=== PATIENT | female | born 1930 | race Caucasian/White ===

== ENCOUNTER 2020-04-25 18:59 | Inpatient (IN) | payer MEDICARE, BC ==
[2020-04-25] MEDS ORDERED: Ondansetron 4 MG Tab.DIS PO PRN (19:55)
[2020-04-25] MEDS ORDERED: Acetaminophen 325 MG Tab PO PRN (19:55)
[2020-04-25] MEDS ORDERED: Docusate Sodium 100 MG Cap PO PRN (19:55)
[2020-04-25] MEDS ORDERED: Sodium Chloride 0.9% 10 ML Syringe FLUSH PRN (19:55)
[2020-04-25] MEDS ORDERED: Temazepam 15 MG Cap PO PRN (19:55)
--- NOTE | 2020-04-25 20:05 | PCM.HP ---
H&P History of Present Illness - General Date of Service: 04/25/20 Admit Problem/Dx: Admission Diagnosis/Problem Admission Diagnosis/Problem Acute renal failure Source of Information: Family - History of Present Illness Initial Comments - Free Text/Narative: 89-year-old with a history of dementia lives with . The noted that in the past few days prior to admission the patient is a more sleepy, decreased oral intake. Less engaging in conversation. The patient denies chest pain, no shortness of breath No new medication change. The patient went to the clinic where she was noted to have acute renal failure, hypercalcemia and was referred to Hospital direct admission. - Related Data Allergies/Adverse Reactions: Allergies Allergy/AdvReac Type Severity Reaction Status Date / Time No Known Allergies Allergy Verified 04/25/20 19:43 Home Medications: Home Meds Acetaminophen [Acetaminophen Extra Strength] 500 mg PO Q8H PRN 04/25/20 [History ] Aspirin [Aspirin EC] 81 mg PO DAILY 04/25/20 [History] Calcium Carbonate/Vitamin D3 [Calcium 600 + Vit D Tablet] 1 each PO DAILY [History] Meclizine [Antivert] 12.5 mg PO TID PRN 04/25/20 [History] Multivitamin/Iron/Folic Acid [Centrum Adults Tablet] 1 each PO DAILY 04/25/20 [ History] Ramipril 12.5 mg PO DAILY 04/25/20 [History] hydroCHLOROthiazide [Hydrochlorothiazide] 12.5 mg PO DAILY 04/25/20 [History] Past Medical History HEENT History: Reports: Cataract, Hard of Hearing, Impaired Vision Cardiovascular History: Reports: High Cholesterol, Hypertension Gastrointestinal History: Reports: Hemorrhoids Genitourinary History: Reports: Acute Renal Failure, Urinary Incontinence [place] History: Reports: Musculoskeletal History: Reports: Arthritis Neurological History: Reports: Other (See Below) Other Neuro History: dementia - Infectious Disease History Infectious Disease History: Reports: Chicken Pox - Past Surgical History HEENT Surgical History: Reports: Cataract Surgery Cardiovascular Surgical History: Reports: None GI Surgical History: Reports: Appendectomy, Cholecystectomy, Colonoscopy Female Surgical History: Reports: None Neurological Surgical History: Reports: None Musculoskeletal Surgical History: Reports: Knee Replacement, Shoulder Surgery Social & Family History - Family History Family Medical History: Noncontributory - Tobacco Use Smoking Status *Q: Never Smoker Second Hand Smoke Exposure: No - Caffeine Use Caffeine Use: Reports: None - Recreational Drug Use Recreational Drug Use: No H&P Review of Systems - Review of Systems: Review Of Systems: See Below General: Denies: Fever, Chills Pulmonary: Denies: Shortness of Breath, Wheezing Cardiovascular: Reports: Edema. Denies: Chest Pain Gastrointestinal: Reports: Anorexia. Denies: Abdominal Pain, Diarrhea Psychiatric: Reports: Confusion Exam - Exam Exam: See Below - Vital Signs Vital Signs: Last Vital Signs Temp 97.5 F 04/25/20 19:15 Pulse 51 L 04/25/20 19:15 Resp 16 04/25/20 19:15 BP 156/94 H 04/25/20 19:15 Pulse Ox 96 04/25/20 19:15 Weight: 155 lb 4.8 oz - Exam Quality Assessment: No: Supplemental Oxygen General: Alert. No: Oriented Neck: Supple Lungs: Clear to Auscultation, Normal Respiratory Effort Cardiovascular: Regular Rate, Regular Rhythm GI/Abdominal Exam: Normal Bowel Sounds, Soft, Non-Tender Extremities: Pedal Edema (1+ bilateral) Neuro Extensive - Mental Status: Alert. No: Oriented x3 Neuro Extensive - Motor, Sensory, Reflexes: No: Abnormal Motor Psychiatric: Alert, Normal Affect, Normal Mood - Patient Data Lab Results Last 24 hrs: Monitor results were reviewed from the clinic Chest x-ray "normal heart size and pulmonary vascularity mild prominence of the right superior mediastinum likely due to vasculature". White blood cell count 11.7, hemoglobin 14.2, platelet count 335 B UN 14, sodium 143, creatinine 1.8, baseline creatinine 1.3-1.4, calcium 10.3, 6 months ago was 10.6, - Problem List (1) IVONNE (acute kidney injury) SNOMED Code(s): 97087175, 66294839 ICD Code: N17.9 - ACUTE KIDNEY FAILURE, UNSPECIFIED Status: Acute Current Visit: Yes (2) Hypercalcemia SNOMED Code(s): 76261275 ICD Code: E83.52 - HYPERCALCEMIA Status: Acute Current Visit: Yes (3) Dementia SNOMED Code(s): 14631359 ICD Code: F03.90 - UNSPECIFIED DEMENTIA WITHOUT BEHAVIORAL DISTURBANCE Status: Acute Current Visit: Yes Problem List Initiated/Reviewed/Updated: Yes Orders Last 24hrs: Active Orders 24 hr Category Date Time Status Patient Status [ADT] Routine ADT 04/25/20 19:55 Ordered Antiembolic Devices [RC] PER UNIT ROUTINE Care 04/25/20 19:59 Ordered Oxygen Therapy [RC] PRN Care 04/25/20 19:55 Ordered Peripheral IV Care [RC] . DIRECTED Care 04/25/20 19:59 Ordered Up With Assistance [RC] ASDIRECTED Care 04/25/20 19:55 Ordered VTE/DVT Education [RC] PER UNIT ROUTINE Care 04/25/20 19:55 Ordered Vital Signs [RC] Q4H Care 04/25/20 19:55 Ordered Regular Diet [DIET] Diet 04/25/20 Breakfast Ordered BASIC METABOLIC PANEL,BMP [CHEM] AM Lab 04/26/20 05:15 Ordered CBC WITH AUTO DIFF [HEME] AM Lab 04/26/20 05:15 Ordered Acetaminophen [Tylenol] Med 04/25/20 19:55 Ordered 650 mg PO Q4H PRN Aspirin [Halfprin] Med 04/26/20 09:00 Ordered 81 mg PO DAILY Docusate Sodium [Colace] Med 04/25/20 19:55 Ordered 100 mg PO BID PRN Heparin Sodium Med 04/25/20 22:00 Ordered 5,000 units SUBCUT Q8HR Multivitamin/Iron/Folic Acid [Centrum Adults Tablet] Med 04/26/20 09:00 Ordered 1 each PO DAILY Ondansetron [Zofran ODT] Med 04/25/20 19:55 Ordered 4 mg PO Q6H PRN Sodium Chloride 0.9% [Normal Saline] 1,000 ml Med 04/25/20 20:00 Ordered IV ASDIRECTED Sodium Chloride 0.9% [Saline Flush] Med 04/25/20 19:55 Ordered 10 ml FLUSH ASDIRECTED PRN Temazepam [Restoril] Med 04/25/20 19:55 Ordered 15 mg PO BEDTIME PRN Antiembolic Hose [OM.PC] Per Unit Routine Oth 04/25/20 19:58 Ordered Peripheral IV Insertion Adult [OM.PC] Routine Oth 04/25/20 19:55 Ordered Resuscitation Status Routine Resus Stat 04/25/20 19:55 Ordered Medication Orders Acetaminophen (Tylenol) 650 mg PO Q4H PRN PRN Reason: Pain (Mild 1-3)/fever Aspirin (Halfprin) 81 mg PO DAILY [facility] Docusate Sodium (Colace) 100 mg PO BID PRN PRN Reason: Constipation Heparin Sodium (Porcine) (Heparin Sodium) 5,000 units SUBCUT Q8HR [facility] Sodium Chloride (Normal Saline) 1,000 mls @ 50 mls/hr IV ASDIRECTED [facility] Non-Formulary Medication (Multivitamin/Iron/Folic Acid [Centrum Adults Tablet]) 1 each PO DAILY [facility] Ondansetron HCl (Zofran Odt) 4 mg PO Q6H PRN PRN Reason: nausea, able to take PO Sodium Chloride (Saline Flush) 10 ml FLUSH ASDIRECTED PRN PRN Reason: Keep Vein Open Temazepam (Restoril) 15 mg PO BEDTIME PRN PRN Reason: Sleep Assessment/Plan Comment:: Presented with increasing weakness Acute renal failure We will stop Ramipril Give gentle IV hydration Hypercalcemia Stop ramipril, improve renal function Stop calcium supplement Stop hydrochlorothiazide Generalized weakness Likely secondary to renal failure, baseline dementia, advanced age Will be high risk for hospital related delirium DVT prophylaxis with subcutaneous heparin CODE STATUS will be DNR per
[2020-04-25] MEDS: Sodium Chloride 0.9% 1,000 ML IV SCH (20:28)
[2020-04-25] MEDS: Heparin Sodium 5,000 Units/ML Vial SUBCUT SCH (22:17)
[2020-04-26] MEDS: Heparin Sodium 5,000 Units/ML Vial SUBCUT SCH ×4 (05:47→21:01)
[2020-04-26 07:55] LABS: ANION GAP 10.5 mEq/L (7-13)
[2020-04-26] MEDS: Multivitamins,Therapeutic Tab PO SCH (09:08)
[2020-04-26] MEDS: Aspirin 81 MG Tab.EC PO SCH (09:08)
--- NOTE | 2020-04-26 10:32 | PCM.PN ---
- General Info Date of Service: 04/26/20 Admission Dx/Problem (Free Text): Admission Diagnosis/Problem Admission Diagnosis/Problem Acute renal failure Subjective Update: remained stable, pleasantly confused no complaints no fever, no sob, no cp Functional Status: Reports: Pain Controlled, Tolerating Diet - Review of Systems General: Denies: Fever, Weakness Pulmonary: Denies: Shortness of Breath Cardiovascular: Denies: Chest Pain, Edema Neurological: Reports: Confusion Psychiatric: Denies: Agitation - Patient Data Vitals - Most Recent: Last Vital Signs Temp 97.8 F 04/26/20 07:00 Pulse 49 L 04/26/20 07:00 Resp 18 04/26/20 07:00 BP 138/58 L 04/26/20 07:00 Pulse Ox 98 04/26/20 07:00 Weight - Most Recent: 155 lb 4.8 oz I&O - Last 24 Hours: Intake & Output 04/25/20 04/26/20 04/26/20 22:59 06:59 14:59 Intake Total 200 120 Balance 200 120 Lab Results Last 24 Hours: Laboratory Results - last 24 hr 04/26/20 04/26/20 Range/Units 07:35 07:35 WBC 11.2 H (5.0-10.0) 10^3/uL RBC 4.57 (4.2-5.4) 10^6/uL Hgb 14.5 (12.0-16.0) g/dL Hct 43.5 (37.0-47.0) % MCV 95.2 (80-100) fL MCH 31.7 (27.0-34.0) pg MCHC 33.3 (33.0-35.0) g/dL Plt Count 279 (150-450) 10^3/uL Neut % (Auto) 68.5 (42.2-75.2) % Lymph % (Auto) 17.7 L (20.5-50.1) % [place] % (Auto) 9.9 H (2-8) % Eos % (Auto) 3.4 H (1.0-3.0) % Baso % (Auto) 0.5 (0.0-1.0) % Sodium 140 (136-145) mmol/L Potassium 3.5 (3.5-5.1) mmol/L Chloride 105 (98-107) mmol/L Carbon Dioxide 28 (21-32) mmol/L Anion Gap 10.5 (7-13) mEq/L BUN 33 H (7-18) mg/dL Creatinine 1.54 H (0.55-1.02) mg/dL Est Cr Clr Drug Dosing 21.39 mL/min Estimated GFR (MDRD) 32 Glucose 79 (74-99) mg/dL Calcium 9.5 (8.5-10.1) mg/dL Med Orders - Current: Current Medications Acetaminophen (Tylenol) 650 mg PO Q4H PRN PRN Reason: Pain (Mild 1-3)/fever Aspirin (Halfprin) 81 mg PO DAILY [facility] Last Admin: 04/26/20 09:08 Dose: 81 mg Docusate Sodium (Colace) 100 mg PO BID PRN PRN Reason: Constipation Heparin Sodium (Porcine) (Heparin Sodium) 5,000 units SUBCUT Q8HR [facility] Last Admin: 04/26/20 05:47 Dose: 5,000 units Sodium Chloride (Normal Saline) 1,000 mls @ 50 mls/hr IV ASDIRECTED [facility] Last Admin: 04/25/20 20:28 Dose: 50 mls/hr Multivitamins (Thera) 1 each PO DAILY [facility] Last Admin: 04/26/20 09:08 Dose: 1 each Ondansetron HCl (Zofran Odt) 4 mg PO Q6H PRN PRN Reason: nausea, able to take PO Sodium Chloride (Saline Flush) 10 ml FLUSH ASDIRECTED PRN PRN Reason: Keep Vein Open Temazepam (Restoril) 15 mg PO BEDTIME PRN PRN Reason: Sleep - Exam General: Alert. No: Oriented Neck: Supple Lungs: Clear to Auscultation, Normal Respiratory Effort Cardiovascular: Regular Rate, Regular Rhythm GI/Abdominal Exam: Normal Bowel Sounds, Soft, Non-Tender Extremities: No Pedal Edema Sepsis Event Note - Evaluation Sepsis Screening Result: No Definite Risk - Focused Exam Vital Signs: Vital Signs Temp Pulse Resp BP Pulse Ox 04/26/20 07:00 97.8 F 49 L 18 138/58 L 98 Date Exam was Performed: 04/26/20 Time Exam was Performed: 10:29 - Problem List & Annotations (1) IVONNE (acute kidney injury) SNOMED Code(s): 13662244, 49314935 Code(s): N17.9 - ACUTE KIDNEY FAILURE, UNSPECIFIED Status: Acute Current Visit: Yes (2) Hypercalcemia SNOMED Code(s): 27988390 Code(s): E83.52 - HYPERCALCEMIA Status: Acute Current Visit: Yes (3) Dementia SNOMED Code(s): 24326036 Code(s): F03.90 - UNSPECIFIED DEMENTIA WITHOUT BEHAVIORAL DISTURBANCE Status: Acute Current Visit: Yes - Problem List Review Problem List Initiated/Reviewed/Updated: Yes - My Orders Last 24 Hours: My Active Orders 04/25/20 19:55 Patient Status [ADT] Routine Oxygen Therapy [RC] PRN Up With Assistance [RC] ASDIRECTED VTE/DVT Education [RC] PER UNIT ROUTINE Vital Signs [RC] Q4H Acetaminophen [Tylenol] 650 mg PO Q4H PRN Docusate Sodium [Colace] 100 mg PO BID PRN Ondansetron [Zofran ODT] 4 mg PO Q6H PRN Sodium Chloride 0.9% [Saline Flush] 10 ml FLUSH ASDIRECTED PRN Temazepam [Restoril] 15 mg PO BEDTIME PRN Peripheral IV Insertion Adult [OM.PC] Routine Resuscitation Status Routine 04/25/20 19:58 Antiembolic Hose [OM.PC] Per Unit Routine 04/25/20 19:59 Antiembolic Devices [RC] PER UNIT ROUTINE Peripheral IV Care [RC] . DIRECTED 04/25/20 20:00 Sodium Chloride 0.9% [Normal Saline] 1,000 ml IV ASDIRECTED 04/25/20 22:00 Heparin Sodium 5,000 units SUBCUT Q8HR 04/26/20 09:00 Aspirin [Halfprin] 81 mg PO DAILY Multivitamins,Therapeutic [Thera] 1 each PO DAILY - Plan Plan:: Presented with increasing weakness, sleepiness found to have IVONNE with admission cr. 1.8 with hypoercalcemia Ca 10.6 Acute renal failure stopped Ramipril treated with gentle IV hydration improved stop IVF cont to hold Ramipril Hypercalcemia Stop ramipril, improve renal function Stop calcium supplement Stop hydrochlorothiazide improved will follow Generalized weakness Likely secondary to renal failure, baseline dementia, advanced age Will be high risk for hospital related delirium will get pt/ot eval DVT prophylaxis with subcutaneous heparin CODE STATUS will be DNR per
[2020-04-26] MEDS: Sodium Chloride 0.9% 1,000 ML IV SCH (15:44)
[2020-04-27] MEDS: Heparin Sodium 5,000 Units/ML Vial SUBCUT SCH ×2 (06:04→14:29)
[2020-04-27 06:57] LABS: ANION GAP 11.6 mEq/L (7-13)
[2020-04-27] MEDS: Aspirin 81 MG Tab.EC PO SCH (09:11)
[2020-04-27] MEDS: Multivitamins,Therapeutic Tab PO SCH (09:11)
--- NOTE | 2020-04-27 10:30 | PCM.DCSUM1 ---
Discharge Summary - Hospital Course Free Text/Narrative:: Presented with increasing weakness, sleepiness found to have IVONNE with admission cr. 1.8 with hypoercalcemia Ca 10.6 Acute renal failure stopped Ramipril treated with gentle IV hydration improved, Cr stable at 1.5 cont to hold Ramipril Hypercalcemia Stop ramipril, improve renal function Stop calcium supplement Stop hydrochlorothiazide improved follow periodically Generalized weakness Likely secondary to renal failure, baseline dementia, advanced age did fairly well with pt/ot will discharge home Diagnosis: Stroke: No - Discharge Data Discharge Date: 04/27/20 Discharge Disposition: Home, Self-Care 01 Condition: Good - Referral to Home Health Primary Care Physician: Shira Lakhani ADMINISTRATIVE AND PROGRAM SPECIALIST - Discharge Diagnosis/Problem(s) (1) IVONNE (acute kidney injury) SNOMED Code(s): 59669106, 59224747 ICD Code: N17.9 - ACUTE KIDNEY FAILURE, UNSPECIFIED Status: Acute Current Visit: Yes (2) Hypercalcemia SNOMED Code(s): 48318979 ICD Code: E83.52 - HYPERCALCEMIA Status: Acute Current Visit: Yes (3) Dementia SNOMED Code(s): 00353479 ICD Code: F03.90 - UNSPECIFIED DEMENTIA WITHOUT BEHAVIORAL DISTURBANCE Status: Acute Current Visit: Yes - Patient Summary/Data Consults: Consultations 04/26/20 10:32 OT Evaluation and Treatment [CONS] Routine PT Evaluation and Treatment [CONS] Routine - Patient Instructions Diet: Heart Healthy Diet - Discharge Plan Home Medications: Home Meds Acetaminophen [Acetaminophen Extra Strength] 500 mg PO Q8H PRN 04/25/20 [History ] Aspirin [Aspirin EC] 81 mg PO DAILY 04/25/20 [History] Meclizine [Antivert] 12.5 mg PO TID PRN 04/25/20 [History] Multivitamin/Iron/Folic Acid [Centrum Adults Tablet] 1 each PO DAILY 04/25/20 [ History] Oxygen Therapy Mode: Room Air - Discharge Summary/Plan Comment DC Time >30 min.: No - General Info Date of Service: 04/27/20 Subjective Update: remained stable, pleasantly confused no complaints no fever, no sob, no cp - Review of Systems General: Reports: No Symptoms. Denies: Fever Pulmonary: Denies: Shortness of Breath Cardiovascular: Denies: Chest Pain, Edema Neurological: Reports: Confusion Psychiatric: Denies: Mood Lability, Hallucinations - Patient Data Vitals - Most Recent: Last Vital Signs Temp 99.1 F 04/27/20 07:44 Pulse 50 L 04/27/20 07:44 Resp 18 04/27/20 07:44 BP 110/54 L 04/27/20 07:44 Pulse Ox 97 04/27/20 07:44 Weight - Most Recent: 155 lb 4.8 oz I&O - Last 24 hours: Intake & Output 04/26/20 04/27/20 04/27/20 22:59 06:59 14:59 Intake Total 931 300 Balance 931 300 Lab Results - Last 24 hrs: Laboratory Results - last 24 hr 04/27/20 04/27/20 Range/Units 06:00 06:00 WBC 10.3 H (5.0-10.0) 10^3/uL RBC 4.32 (4.2-5.4) 10^6/uL Hgb 13.6 (12.0-16.0) g/dL Hct 41.2 (37.0-47.0) % MCV 95.4 (80-100) fL MCH 31.5 (27.0-34.0) pg MCHC 33.0 (33.0-35.0) g/dL Plt Count 312 (150-450) 10^3/uL Neut % (Auto) 65.1 (42.2-75.2) % Lymph % (Auto) 20.5 (20.5-50.1) % [place] % (Auto) 9.7 H (2-8) % Eos % (Auto) 4.2 H (1.0-3.0) % Baso % (Auto) 0.5 (0.0-1.0) % Sodium 141 (136-145) mmol/L Potassium 3.6 (3.5-5.1) mmol/L Chloride 105 (98-107) mmol/L Carbon Dioxide 28 (21-32) mmol/L Anion Gap 11.6 (7-13) mEq/L BUN 30 H (7-18) mg/dL Creatinine 1.51 H (0.55-1.02) mg/dL Est Cr Clr Drug Dosing 21.81 mL/min Estimated GFR (MDRD) 32 Glucose 77 (74-99) mg/dL Calcium 9.4 (8.5-10.1) mg/dL Med Orders - Current: Current Medications Acetaminophen (Tylenol) 650 mg PO Q4H PRN PRN Reason: Pain (Mild 1-3)/fever Aspirin (Halfprin) 81 mg PO DAILY [facility] Last Admin: 04/27/20 09:11 Dose: 81 mg Docusate Sodium (Colace) 100 mg PO BID PRN PRN Reason: Constipation Heparin Sodium (Porcine) (Heparin Sodium) 5,000 units SUBCUT Q8HR [facility] Last Admin: 04/27/20 06:04 Dose: 5,000 units Multivitamins (Thera) 1 each PO DAILY [facility] Last Admin: 04/27/20 09:11 Dose: 1 each Ondansetron HCl (Zofran Odt) 4 mg PO Q6H PRN PRN Reason: nausea, able to take PO Sodium Chloride (Saline Flush) 10 ml FLUSH ASDIRECTED PRN PRN Reason: Keep Vein Open Temazepam (Restoril) 15 mg PO BEDTIME PRN PRN Reason: Sleep Last Admin: 04/26/20 18:15 Dose: 15 mg Discontinued Medications Sodium Chloride (Normal Saline) 1,000 mls @ 50 mls/hr IV ASDIRECTED [facility] Last Admin: 04/26/20 15:44 Dose: 50 mls/hr - Exam General: Reports: Alert Neck: Reports: Supple Lungs: Reports: Clear to Auscultation, Normal Respiratory Effort Cardiovascular: Reports: Regular Rate, Regular Rhythm GI/Abdominal Exam: Normal Bowel Sounds, Soft, Non-Tender Extremities: No Pedal Edema Skin: Reports: Warm, Dry Neurological: Reports: No New Focal Deficit Psy/Mental Status: Reports: Alert. Denies: Labile Mood
== END 2020-04-27 12:30 | disposition home or self-care (01) | DRG 684 ==
LOC: DL.MS 18:59 → OBSVTOIN 19:55 → DL.MS 19:55
PROVIDERS: ADMIT Internal Medicine; ATTEND Internal Medicine
DX: N17.9 Acute kidney failure, unspecified (principal); E83.52 Hypercalcemia; F03.90 Unspecified dementia, unspecified severity, without behavioral disturbance, psychotic disturbance, mood disturbance, and anxiety; Z66 Do not resuscitate; H91.90 Unspecified hearing loss, unspecified ear; H54.7 Unspecified visual loss; E78.00 Pure hypercholesterolemia, unspecified; I10 Essential (primary) hypertension; R32 Unspecified urinary incontinence; M19.90 Unspecified osteoarthritis, unspecified site; Z96.659 Presence of unspecified artificial knee joint; Z90.49 Acquired absence of other specified parts of digestive tract; Z79.82 Long term (current) use of aspirin; Z79.899 Other long term (current) drug therapy; Z98.49 Cataract extraction status, unspecified eye
CPT/HCPCS: 36415; 80048; 85025; 97161-GP; 97166-GO; A9270-GY; J1644; J7030